=== PATIENT | male | born 1965 | race American Indian/Alaskan Native ===

== ENCOUNTER 2020-02-07 11:25 | Outpatient (CLI) | payer OTHER ==
[2020-02-07 12:46] LABS: Basophils # (Auto) 0.1 K/mm3 (0.0-0.1); Basophils % (Auto) 1.1 % (0.0-1.8); Eosinophils # (Auto) 0.2 K/mm3 (0.0-0.4); Eosinophils % (Auto) 1.5 % (0.0-4.3); Hemoglobin 14.6 gm/dl (11.8-15.2); Lymphocytes # (Auto) 3.5 K/mm3 (1.2-5.4); Lymphocytes % (Auto) 32.4 % (13.4-35.0); Mean Corpuscular HGB Conc 35 % (32-34); Mean Corpuscular Volume 89 fl (84-94); Monocytes % (Auto) 8.8 % (0.0-7.3); Platelet Count 199 K/mm3 (140-440); Red Blood Count 4.72 M/mm3 (3.65-5.03); Red Cell Distribution Width 14.9 % (13.2-15.2)
[2020-02-07 12:52] LABS: Alanine Aminotransferase 11 units/L (7-56); Albumin 4.2 g/dL (3.9-5); BUN/Creatinine Ratio 21; Blood Urea Nitrogen 17 mg/dL (9-20); Calcium 9.6 mg/dL (8.4-10.2); Hemolysis Index 2
[2020-02-07 12:56] LABS: ABG Base Excess 3.7 mmol/L (-2.0-3.0); ABG HCO3 28.5 mmol/L (20.0-26.0); ABG Methemoglobin 0.5 % (0.0-1.5); ABG Oxygen Saturation 96.7 % (95.0-99.0); ABG PCO2 43.5 mm Hg; ABG PH 7.434 pH Units (7.350-7.450); ABG PO2 81.4 mm Hg (80.0-90.0)
--- NOTE | 2020-02-07 13:19 | XRay Report ---
CHEST 2 VIEWS INDICATION: J84.10Pulmonary fibrosis, unspecified/Z87.01Personal history of p. COMPARISON: None FINDINGS: Support devices: None. Heart: Within normal limits. Lungs/pleura: No acute air space or interstitial disease. No pneumothorax. Additional findings: None. IMPRESSION: Unremarkable chest films. No evidence for pulmonary fibrosis. Signer Name: Arthur Wren Jr, MD Signed: 02/07/2020 1:15 PM Workstation Name: [id number]
[2020-02-07 14:44] LABS: Erythrocyte Sedimentation Rate 2 mm/Hr (0-20)
--- NOTE | 2020-02-07 15:53 | Cat Scan Report ---
CT CHEST WITH CONTRAST INDICATION / CLINICAL INFORMATION: J84.10Pulmonary fibrosis, unspecified/Z87.01Personal history of p. TECHNIQUE: Axial CT images were obtained through the chest after he is IV contrast. All CT scans at this locatio n are performed using CT dose reduction for ALARA by means of automated exposure control. COMPARISON: None available. FINDINGS: HEART: No significant abnormality. THORACIC AORTA: No significant abnormality. MEDIASTINUM and ADDIS: No significant abnormality. LUNGS: Very faint parenchymal changes are present. 0.45 cm pulmonary nodule present involving right l ower lobe best delineated image 65 series 4. PLEURA: No significant pleural effusion. No pneumothorax. ADDITIONAL FINDINGS: None. UPPER ABDOMEN: No significant abnormality. SKELETAL SYSTEM: No significant abnormality. IMPRESSION: 1. Faint parenchymal changes predominantly peripherally located, inflammatory process is a concern 2. Right lower lobe incidental pulmonary nodule. Recommend continued surveillance Fleischner Society pulmonary nodule recommendations . Solid nodules Single Single solid nodule <6 mm (<100 mm3) low-risk patients: no routine follow-up required high-risk patients: optional CT at 12 months (particularly with suspicious nodule morphology and/or u pper lobe location; see "risk assessment" below) Signer Name: Quintin Mendoza MD Signed: 02/07/2020 3:49 PM Workstation Name: [id number]
[2020-02-09 20:52] LABS: Myeloperoxidase Antibody <1.0 AI (<1.0)
== END 2020-02-07 11:26 | disposition home or self-care (01) ==
LOC: CT 11:25
PROVIDERS: ATTEND Internal Medicine
DX: R91.1 Solitary pulmonary nodule (principal); J98.4 Other disorders of lung; J84.10 Pulmonary fibrosis, unspecified; U07.1 COVID-19; K21.9 Gastro-esophageal reflux disease without esophagitis; Z87.01 Personal history of pneumonia (recurrent)
CPT/HCPCS: 36415; 36600; 71046; 71260; 80053; 80061; 82164; 82803; 84436; 84443; 85025; 85652; 86021; 86038; 86431; Q9967

== ENCOUNTER 2020-08-29 12:33 | Outpatient (CLI) | payer OTHER ==
[2020-08-29 13:36] LABS: Blood Urea Nitrogen 15 mg/dL (9-20)
--- NOTE | 2020-08-29 14:24 | Cat Scan Report ---
CT CHEST WITH CONTRAST INDICATION: FOLLOW UP CONTRAST: 100 cc Omnipaque 300 IV COMPARISON: 02/07/[address] scans at this location are performed using CT dose reduction for ALARA by means of automated e xposure control. FINDINGS: No significant focal bony lesions are seen. No significant axillary or chest wall abnormali ties are noted. No mediastinal or hilar masses are seen. No pleural effusions are noted. Visualized p ortions of the upper abdomen show cholecystectomy changes and fatty infiltration of the liver. Mild h aziness to the central mesentery with scattered small nodes is partially visualized and not obviously changed from prior study. The mild patchy interstitial infiltrates seen bilaterally on prior study are no longer obvious. There are slight chronic changes seen bilaterally. No obvious acute infiltrate is seen at this time. On th e left I see no pulmonary nodules or masses. On the right the noncalcified nodule in the right lower lobe anteriorly near the major fissure is again noted measuring proximally 6 mm and without obvious c hange. No new nodules or masses are seen. IMPRESSION: 1. Stable appearance of right lower lobe nodule. This shows borderline prominence. I would suggest fo llow-up in 6-12 months. 2. Resolution of previous interstitial infiltrates Signer Name: Be Babin MD Signed: 08/29/2020 2:19 PM Workstation Name: [id number]
== END 2020-08-29 12:34 | disposition home or self-care (01) ==
LOC: CT 12:33
PROVIDERS: ATTEND Internal Medicine
DX: R91.1 Solitary pulmonary nodule (principal); J84.10 Pulmonary fibrosis, unspecified; K76.0 Fatty (change of) liver, not elsewhere classified; Z90.49 Acquired absence of other specified parts of digestive tract; Z87.01 Personal history of pneumonia (recurrent)
CPT/HCPCS: 36415; 71260; 82565; 84520; Q9967